=== PATIENT | female | born 1930 | race Caucasian/White ===

== ENCOUNTER 2018-03-17 15:44 | Inpatient (IN) | payer OTHER, BC ==
[~2018-03-17] VITALS: Ht 175.3 cm; Wt 120.0 kg
[2018-03-17 17:15] LABS: BASOPHIL (%) 0.6 % (0-1); BASOPHIL COUNT 0.1 K/uL (0-0.1); EOSINOPHIL COUNT 0.1 K/uL (0-0.3); HEMATOCRIT 51.4 % (36.0-46.0); IMMATURE GRANULOCYTE (%) 0.4 % (0.0-0.7); LYMPHOCYTE (%) 14.2 % (15-42); LYMPHOCYTE COUNT 1.5 K/uL (1.0-2.8); MCH 29.4 PG (29.0-34.0); MCHC 33.1 G/DL (30.0-36.0); MCV 88.8 FL (83-99); MONOCYTE (%) 7.5 % (3-12); MONOCYTE COUNT 0.8 K/uL (0-0.8); NEUTROPHIL (%) 76.3 % (45-76); NEUTROPHIL COUNT 8.3 K/uL (1.8-6.4); PLATELET COUNT 332 K/uL (156-360); RBC DIS.WIDTH-CV 12.9 % (11.8-14.6); RBC DIS.WIDTH-SD 42.1 % (39-53); RED BLOOD COUNT 5.79 M/uL (3.80-5.20); WHITE BLOOD COUNT 10.9 K/uL (4.1-10.2)
[2018-03-17 17:22] LABS: ALBUMIN 4.4 g/dL (3.2-4.8); CHLORIDE 101 mEq/L (99-109); POTASSIUM 3.6 mEq/L (3.7-5.4); SODIUM 142 mEq/L (136-147)
[2018-03-17 17:24] LABS: GLUCOSE 112 mg/dL (70-99); TOTAL PROTEIN 7.2 g/dL (6.4-8.3)
[2018-03-17 17:26] LABS: TOTAL BILIRUBIN 0.5 mg/dL (0.0-1.0)
[2018-03-17 17:27] LABS: SERUM ETHYL ALCOHOL < 10 mg/dL
[2018-03-17 17:28] LABS: CREATININE 0.7 mg/dL (0.6-1.3); GFR ESTIMATE (CALCULATED) > 59 mL/min/
[2018-03-17 17:29] LABS: ALKALINE PHOSPHATASE 104 IU/L (3-129); AST (GOT) 19 IU/L (2-34)
[2018-03-17 17:30] LABS: UREA NITROGEN (BUN) 15 mg/dL (9-23)
[2018-03-17 17:31] LABS: SALICYLATE < 5.0 MG/DL (15-30)
[2018-03-17 17:32] LABS: ACETAMINOPHEN (TYLENOL) < 10 mcg/mL (10-30); ALT (GPT) 17 IU/L (3-49)
[2018-03-17 17:35] LABS: TROP-I INTERPRETATION NEGATIVE; TROPONIN-I 0.01 ng/mL (0.0-0.30)
[2018-03-17 17:51] LABS: APPEARANCE SL.HAZY ((CLEAR)); BILIRUBIN NEGATIVE; BLOOD SMALL; COLOR YELLOW ((YELLOW)); GLUCOSE (STRIP) NEGATIVE; KETONES NEGATIVE; LEUKOCYTES NEGATIVE; NITRITE NEGATIVE; PROTEIN (STRIP) 100; SPECIFIC GRAVITY 1.021 (1.000-1.030)
[2018-03-17 17:59] LABS: BACTERIA NONE SEEN /HPF; EPITHELIAL CELLS RARE /HPF; WHITE BLOOD CELLS 0-5 /HPF (0-5)
[2018-03-17 18:00] LABS: AMPHETAMINE NEGATIVE (500 ng/mL); BARBITURATES NEGATIVE (200 ng/mL); BENZODIAZEPINES NEGATIVE (150 ng/mL); BUPRENORPHINE NEGATIVE (10 ng/mL); COCAINE NEGATIVE (150 ng/mL); METHADONE NEGATIVE (200 ng/mL); METHAMPHETAMINE NEGATIVE (500 ng/mL); OPIATES (MORPHINE) NEGATIVE (100 ng/mL); OXYCODONE NEGATIVE (100 ng/mL); PHENCYCLIDINE NEGATIVE (25 ng/mL); PROPOXYPHENE NEGATIVE (300 ng/mL); THC CANNABINOIDS NEGATIVE (50 ng/mL); TRICYCLIC ANTIDEPRESSANTS NEGATIVE (300 ng/mL)
[2018-03-17 18:17] LABS: RED BLOOD CELLS NONE SEEN /HPF (0-5)
[2018-03-17 18:18] LABS: MUCUS 2+ /LPF
[2018-03-17 18:19] LABS: HYALINE CASTS RARE /LPF
[2018-03-17 18:20] LABS: CALCIUM OXALATE CRYSTALS 2+ /HPF
[2018-03-18 17:00] VITALS: BP 125/69
[2018-03-18 17:21] VITALS: BP 125/29
[2018-03-19 08:01] VITALS: BP 110/75
[2018-03-19 15:43] VITALS: BP 174/79
[2018-03-20 07:35] VITALS: BP 175/79
[2018-03-20 08:39] LABS: FOLIC ACID (FOLATE) > 22.0 NG/ML (5.0-22.0)
[2018-03-20 15:48] VITALS: BP 154/68
[2018-03-21 07:45] VITALS: BP 181/82
[2018-03-21 15:39] VITALS: BP 147/66
[2018-03-22] MEDS ORDERED: SERTRALINE HCL50 MG PO (09:01)
[2018-03-22] MEDS ORDERED: ARICEPT10 MG PO (09:02)
[2018-03-22] MEDS ORDERED: ZOLOFT25 MG PO (09:02)
[2018-03-22 15:52] VITALS: BP 144/62
== END 2018-03-22 17:12 | disposition home or self-care (01) | DRG 57 ==
LOC: EME 15:44 → 1WEST 03-18 14:22 → EDOF 03-18 14:22 → ENRESERV 03-18 15:29 → 1WEST 03-18 16:42
PROVIDERS: Physician Assistant; Psychiatry & Neurology Psychiatry
DX: G30.9 Alzheimer's disease, unspecified (principal); F02.81 Dementia in other diseases classified elsewhere, unspecified severity, with behavioral disturbance; F32.9 Major depressive disorder, single episode, unspecified; F41.9 Anxiety disorder, unspecified; R45.850 Homicidal ideations; R45.851 Suicidal ideations
CPT/HCPCS: 70450; 71046; 80053; 81003; 82306; 82607; 82746; 84443; 84484; 85025; 90837; 93005; 97165 GO; 99281; 99285; G0480